=== PATIENT | female | born 1970 | race Caucasian/White ===

== ENCOUNTER 2017-08-11 19:45 | Emergency (ER) | payer BC, MEDICAID ==
[~2017-08-11] VITALS: Ht 157.5 cm; Wt 59.0 kg
--- NOTE | 2017-08-11 20:23 | NUR ---
PATIENT [id number]. ABLE TO MAKE NEEDS KNOW. ABLE TO SPEAK IN COMPLETE SENTENCES, SPEACH IS CLEAR. ABLE TO FOLLOW DIRECTIONS. PATIENT COMES IN WITH C/O LOWER BACK PAIN RADIATING TO HER RIGHT LEG X 1 DAY [employer]. PATIENT STATES PAIN BECOMES WORSE WITH MOVEMENT/COUGH. NO ALLEVIATING FACTORS HAVE BEEN EFFECTIVE SINCE ONSET OF PAIN. PATIENT STATES THE PAIN STARTED " YESTERDAY MORNING". SHE IS UNABLE TO PROVIDE THE EXACT TIME. PATIENT DENIES FALL/INJURY/TRAUMA TO THE AREA. PATIENT STATES " I THINK IT HAPPENED AFTER I LIFTED SOMETHING" .PATIENT HAS HX OF L4/L5 DISK HERNIATION (2011). DENIES OTHER PERTINENT MEDICAL HISTORY AT THIS TIME. LMP NOT PRESENT DUE TO HYSTERECTOMY IN 2004. PATIENT STATES SHE TOOK IBUPROFEN 800MG PO X 2 DOSES TODAY (0800, 1300). PATIENT DENIES ANALGESIC INTAKE SINCE LAST IBUPROFEN. PATIENT DENIES RESPIRATORY DISTRESS AT THIS TIME. RESPIRATIONS EVEN AND UNLABORED AT THIS TIME. NO CARDIOVASCULAR DISTRESS NOTED. ALL PULSES PRESENT AND PALPABLE +2. NO /GI DISTRESS PRESENT. PATIENT DENIES NAUSEA/VOMITING. BED IN LOWEST POSITION, WHEELS LOCKED, CALL LIGHT IS WITHIN REACH. PATIENT ABLE TO AMBULATE WITH STABLE GAIT, NO FALL RISK CONCERNS AT THIS TIME. SON REMAINS AT BEDSIDE. @2022 - ER MD AT BEDSIDE FOR PATIENT EVALUATION
--- NOTE | 2017-08-11 20:48 | NUR ---
PATIENT IN BED, NO ACUTE DISTRESS. AWAITING CT. AUDIO TECHNICIAN NOTIFIED PATIENT IS READY FOR IMAGING AT THIS TIME. NO HCG NEEDED DUE TO HX OF HYSTERECTOMY. ER MD IS AWARE.
--- NOTE | 2017-08-11 21:28 | NUR ---
PATIENT BACK FROM CT AT THIS TIME
--- NOTE | 2017-08-11 22:26 | NUR ---
PATIENT IN BED. CALL LIGHT WITHIN REACH. ALL PT'S NEEDS ATTENDED & MET. SON AT BEDSIDE. NO ACUTE DISTRESS NOTED. VSS.
--- NOTE | 2017-08-11 22:58 | NUR ---
Patient discharged to home in stable conditon. Written and verbal after care instructions given. Patient verbalizes understanding of instructions. Ambulated from ER with stable gait. All belongings with patient. Patient accompanied by son.
[2017-08-11 22:59] VITALS: BP 106/71
== END 2017-08-11 23:00 | disposition home or self-care (01) ==
LOC: ER 19:49
DX: M54.30 Sciatica, unspecified side (principal); Z90.710 Acquired absence of both cervix and uterus; Z88.1 Allergy status to other antibiotic agents
CPT/HCPCS: 72131; 99284; A4663

== ENCOUNTER 2018-07-07 06:34 | Emergency (ER) | payer MEDICAID ==
[~2018-07-07] VITALS: Ht 154.9 cm; Wt 61.2 kg
--- NOTE | 2018-07-07 06:38 | NUR ---
Pt ambulate to ER with c/o intermittent right elbow pain x 2 months. Pt states she has already seen her PMD regarding this & was instructed to take prednisone. Pt states pain got much more severe this am. Denies injury to area. at bedside. No s/s infection noted. No acute distress noted.
[2018-07-07] MEDS ORDERED: KETOROLAC TROMETHAMINE 30 MG INJ ONE (06:58)
[2018-07-07] MEDS: KETOROLAC TROMETHAMINE 30 MG INJ IM ONE (07:00)
--- NOTE | 2018-07-07 07:05 | NUR ---
Patient discharged to home in stable conditon. Written and verbal after care instructions given. Patient verbalizes understanding of instructions. Pt ambulated out of ER in steady gait with . Pt understands she will follow up with orthopedic MD. All belongings w pt. VSS. NAD noted.
[2018-07-07 07:07] VITALS: BP 111/76
== END 2018-07-07 07:08 | disposition home or self-care (01) ==
LOC: ER 06:36
DX: M25.521 Pain in right elbow (principal); Z88.1 Allergy status to other antibiotic agents; Z90.710 Acquired absence of both cervix and uterus
CPT/HCPCS: 96372; 99283; J1885; A4663

== ENCOUNTER 2020-08-23 13:05 | Emergency (ER) | payer MEDICAID ==
[~2020-08-23] VITALS: Ht 154.9 cm; Wt 63.5 kg
[2020-08-23 14:13] VITALS: BP 118/70
== END 2020-08-23 14:14 | disposition home or self-care (01) ==
LOC: ER 13:05
DX: S82.832A Other fracture of upper and lower end of left fibula, initial encounter for closed fracture (principal); W10.9XXA Fall (on) (from) unspecified stairs and steps, initial encounter; Y92.89 Other specified places as the place of occurrence of the external cause; Z90.49 Acquired absence of other specified parts of digestive tract; Z90.710 Acquired absence of both cervix and uterus; Z88.0 Allergy status to penicillin
CPT/HCPCS: 73590; 73610; 73630; A4663